=== PATIENT | female | born 1975 ===

== ENCOUNTER 2019-12-18 19:41 | Emergency (ER) | payer SELFPAY ==
[~2019-12-18] VITALS: Ht 182.9 cm; Wt 81.8 kg
[2019-12-18 20:02] LABS: BASOPHILS % (AUTO) 0.6 % (0-1); EOSINOPHILS # (AUTO) 0.2 X10'3 (0-0.9); EOSINOPHILS % (AUTO) 2.7 % (0-6); HEMATOCRIT 37.3 % (35.0-45.0); HEMOGLOBIN 12.7 g/dl (12.0-16.0); LYMPHOCYTES % (AUTO) 12.2 % (21-51); MEAN CORPUSCULAR HEMOGLOBIN 29.6 PG (27.0-31.0); MEAN CORPUSCULAR HGB CONC 34.1 g/dL (33.0-36.5); MEAN CORPUSCULAR VOLUME 86.7 FL (78-98); MEAN PLATELET VOLUME 8.2 FL (7.4-10.4); MONOCYTES # (AUTO) 0.8 X10'3 (0-0.9); MONOCYTES % (AUTO) 10.7 % (2-12); NEUTROPHILS # (AUTO) 5.8 X10'3 (1.8-7.7); NEUTROPHILS % (AUTO) 73.8 % (42-75); PLATELET COUNT 244 X10'3 (140-440); RED CELL DISTRIBUTION WIDTH 14.9 % (11.5-14.5); WHITE BLOOD COUNT 7.8 X10'3 (4.5-11.0)
--- NOTE | 2019-12-18 20:16 | NUR ---
PT INSTRUCTED TO VOID IN BSC. SHE ATTEMPTED TO BUT WAS UNABLE TO PROVIDE URINE SAMPLE.
[2019-12-18 20:22] LABS: ETHANOL < 0.010 GM/DL (0.0-0.010)
[2019-12-18] MEDS ORDERED: NO HOME MEDS (20:25)
[2019-12-18 20:43] LABS: ALANINE AMINOTRANSFERASE 57 U/L (12-78); ALBUMIN 4.4 G/DL (3.4-5.0); ALBUMIN/GLOBULIN RATIO 1.1 (1.1-1.5); ALKALINE PHOSPHATASE 62 IU/L (46-116); ANION GAP 12 (8-16); ASPARTATE AMINO TRANSFERASE 92 U/L (10-37); BILIRUBIN,TOTAL 1.1 MG/DL (0.1-1.0); BLOOD UREA NITROGEN 23 MG/DL (7-18); BUN/CREATININE RATIO 15.6 (6.6-38.0); CALCIUM 9.9 MG/DL (8.5-10.1); CHLORIDE 108 MMOL/L (99-107); CREATININE 1.47 MG/DL (0.40-0.90); GLUCOSE 152 MG/DL (70-104); POTASSIUM 3.1 MMOL/L (3.5-5.1); SODIUM 143 MMOL/L (135-145); TOTAL CARBON DIOXIDE 23.1 MMOL/L (24-32); TOTAL PROTEIN 8.3 G/DL (6.4-8.2); eGFR 39 ML/MIN
--- NOTE | 2019-12-18 20:43 | NUR ---
PT NOT ANSERING QUESTIONS APPROPRIATELY. SHE IS PACING. POOR HISTORIAN. UNABLE TO ANSWER IF SHE HAS ANY ALLERGIES, PAST MEDICAL HISTORY, OR MEDICATION USE.
[2019-12-18 21:05] LABS: CLARITY,URINE CLOUDY (Clear); COLOR,URINE YELLOW (Yellow); GLUCOSE, URINE NEGATIVE (Neg); KETONES,URINE TRACE mg/dl (Neg); LEUKOCYTE ESTERASE ,URINE NEGATIVE (Neg); NITRITES, URINE NEGATIVE (Neg); OCCULT BLOOD,URINE TRACE-INTACT (Neg); PH,URINE 5.5 (4.8-8.0); PROTEIN,URINE 100 mg/dl (Neg); URINE HCG NEGATIVE (NEG)
[2019-12-18 21:09] LABS: URINE AMPHETAMINE SCREEN POSITIVE (Neg); URINE BARBITUATE SCREEN NEGATIVE (Neg); URINE BENZODIAZEPINES SCREEN NEGATIVE (Neg); URINE CANNABINOID SCREEN POSITIVE (Neg); URINE COCAINE SCREEN NEGATIVE (Neg); URINE METHADONE SCREEN NEGATIVE (Neg); URINE OPIATE SCREEN NEGATIVE (Neg); URINE PHENCYCLIDINE SCREEN NEGATIVE (Neg)
[2019-12-18] MEDS ORDERED: haloperidol lactate 5mg/ml inj IM ONE ×2 (21:10→21:20)
[2019-12-18] MEDS ORDERED: diphenhydrAMINE 50 mg/ml inj IM ONE ×2 (21:10→21:20)
[2019-12-18] MEDS ORDERED: LORazepam 2 mg/ml vial IM ONE ×2 (21:10→21:20)
--- NOTE | 2019-12-18 21:10 | NUR ---
pt not able to follow safety commands - she is constantly up and out of bed with paranoid behavior and asking "who is shooting at me" - she is thrashing about in bed and a danger to staff and self. security has been called to bedside for standby - medications have been ordered under verbal from MD Goel
[2019-12-18 21:11] LABS: UA COLLECTION TYPE CLN CATCH MIDSTREAM
[2019-12-18 21:16] LABS: AMORPHOUS URATES 2+; BACTERIA,URINE FEW /HPF (Neg); CAL OXALATE CRYSTALS 3+ /HPF (NEGATIVE); RBC,URINE NONE SEEN /HPF (0-2); SQUAMOUS EPITHELIAL CELL,UR MANY /LPF (FEW); WBC,URINE 0-4 /HPF (0-4)
[2019-12-18] MEDS ORDERED: potassium Cl 20 mEq SR tablet PO STA (21:20)
--- NOTE | 2019-12-18 21:29 | NUR ---
pt continues to not follow safety commands - she has removed the mattress from the bed and is charging toward staff. she has been medicated but the medication has not yet had time to take effect. she is asked to please stay in bed or she will be restrained. she continues to get up and out of bed. she is now being placed in 4 place restraints. security is at bedside. pt is yelling obscenities
--- NOTE | 2019-12-18 22:46 | NUR ---
PT SLEEPING AT THIS TIME. V/S STABLE. RESTRAINTS DC'D. PT NOT ABLE TO TAKE POTASSIUM PILLS AT THIS TIME.
--- NOTE | 2019-12-19 00:06 | NUR ---
Received patient from BHAVNA Medina. Patient is sleeping on her left side. Per BHAVNA Medina this patient was able to drink water four or five glasses earlier, she also advises that per the current ER MD the patient can have the PO Pottasium replacement when she awakens in the am. Patient is in direct view from the nursing station.
--- NOTE | 2019-12-19 00:08 | NUR ---
DR. MENA MADE AWARE THAT THE PATIENT DID NOT RECEIVE PO POTASSIUM FOR K LEVEL OF 3.1. PT HAS NO CARDIAC HISTORY. HE IS OK WITH WAITING FOR PATIENT WAKE UP TO GIVE IT.
--- NOTE | 2019-12-19 01:09 | NUR ---
Patient is sleeping quietly on her left side.
--- NOTE | 2019-12-19 06:37 | NUR ---
sleeping no signs of resp distress
--- NOTE | 2019-12-19 07:01 | NUR ---
sleeping no signs of resp distress laying on back
--- NOTE | 2019-12-19 09:03 | NUR ---
Talking to [facility]
--- NOTE | 2019-12-19 09:44 | NUR ---
Told patient she is being discharged patient is sleeping and not waking up, was talking to [facility] before this, will try again latter.
--- NOTE | 2019-12-19 09:58 | NUR ---
Patient still not waking to sign paper just nods and mumbles something in [place] but does not get up to sign paper.
--- NOTE | 2019-12-19 10:01 | NUR ---
patient sleeping on back
[2019-12-19 10:12] VITALS: BP 104/68
== END 2019-12-19 10:14 ==
LOC: ER 19:41
DX: T19.2XXA Foreign body in vulva and vagina, initial encounter (principal); F15.10 Other stimulant abuse, uncomplicated; F12.90 Cannabis use, unspecified, uncomplicated; E87.6 Hypokalemia; N28.9 Disorder of kidney and ureter, unspecified; X58.XXXA Exposure to other specified factors, initial encounter; Y93.89 Activity, other specified; Y92.89 Other specified places as the place of occurrence of the external cause; Y99.8 Other external cause status
CPT/HCPCS: 36415; 80053; 80305; 80320; 81001; 81025; 84443; 85025; 96372; 99285; J1200; J1630; J2060